=== PATIENT | male | born 1970 | race African-American/Black ===

== ENCOUNTER 2018-04-04 02:46 | Observation (INO) ==
[2018-04-04] MEDS ORDERED: Nitroglycerin 0.4 MG TAB.SUBL SL ONE (02:56)
[2018-04-04] MEDS ORDERED: Aspirin 81 MG TAB.CHEW PO ONE (02:56)
--- NOTE | 2018-04-04 03:02 | Emergency Department Note ---
Disposition Clinical Impression: Elevated blood pressure reading Chest pain Qualifiers: Chest pain type: unspecified Qualified Code(s): R07.9 - Chest pain, unspecified Disposition: Admitted As Inpatient Condition: Fair Forms: ED Satisfaction Letter Chest Pain HPI - General Chief Complaint: ED Chest Pain Stated Complaint: chest pain Time Seen by Provider: 04/04/18 02:48 Source: patient Mode of arrival: ambulatory Limitations: no limitations Vital Signs Reviewed: Yes Nursing Notes Reviewed: Yes - History of Present Illness HPI Narrative: 47-year-old male history of hypertension diabetes presents for evaluation of chest pain. Patient states symptom onset was an hour prior to arrival. Notes it to be left-sided. No radiation. States that he eats actually had intermittent symptoms over the past few days. No nausea vomiting or diaphoresis. No dyspnea. No history of heart attacks in the past. Nothing makes the pain better or worse. Pain is not worse with exertion. No pleuritic component. Patient states he took some Tums prior to arrival but did not improve the symptoms. Severity scale (1-10): 1 - Related Data Allergies Allergy/AdvReac Type Severity Reaction Status Date / Time No Known Allergies Allergy Verified 10/15/15 04:32 All systems ED: reviewed and negative except as stated. Constitutional: Denies: fever Cardiovascular: Reports: chest pain Respiratory: Denies: cough, dyspnea Gastrointestinal: Denies: abdominal pain, nausea, vomiting Chest Pain PMH - Past Medical History Medical history: Reports: hypertension Psychiatric history: Reports: no psych history - Social History Smoking Status: Never smoker Alcohol use: Reports: occasionally Drug use: Reports: none Physical Exam - General Limitations: no limitations General appearance: alert, in no apparent distress, obese - Head Head exam: atraumatic, normocephalic, normal inspection - Eye Eye exam: Present: normal appearance, PERRL, EOMI - ENT ENT exam: normal exam, normal oropharynx, mucous membranes moist - Neck Neck exam: Present: normal inspection - Chest Chest inspection: Present: normal inspection, symmetric chest wall rise - Respiratory Respiratory exam: Present: normal lung sounds bilaterally. Absent: respiratory distress - Cardiovascular Cardiovascular exam: Present: regular rate, normal rhythm. Absent: systolic murmur - Abdominal Exam Abdominal exam: Present: soft, Non-Tender - Extremities Exam Extremities exam: Present: normal inspection. Absent: pedal edema - Back Exam Back exam: Present: normal inspection - Neurological Exam Neurological exam: Present: alert, oriented X3 - Skin Skin exam: Present: warm, dry, intact, normal color Course Course Narrative: Patient's resting currently. No acute distress. Patient will get cardiopulmonary evaluation with EKG, chest x-ray troponin. Disposition pending. - Reevaluation(s) Reevaluation #1: Patient's chest pain improved after 1 nitroglycerin. Time: 03:42 Vital Signs Temperature 97.9 F 04/04/18 02:49 Pulse Rate 70 04/04/18 02:49 Respiratory Rate 16 04/04/18 02:49 Blood Pressure 164/105 04/04/18 02:49 O2 Sat by Pulse Oximetry 98 04/04/18 02:49 Temperature 97.9 F 04/04/18 02:49 Pulse Rate 67 04/04/18 03:44 Respiratory Rate 18 04/04/18 03:44 Blood Pressure 158/98 04/04/18 03:44 O2 Sat by Pulse Oximetry 95 04/04/18 03:44 Oxygen Delivery Oxygen Delivery Room Air Chest Pain - MDM Narrative Medical decision making narrative: Patient presented for concerns of chest pain. Patient heart scores of 4. Patient's pain was relieved with one nitroglycerin. During the course of the ED evaluation patient did mention that he has been off his blood pressure medications for the past couple weeks. Patient was noted be hypertensive. Patient does not have a cardiac history. Patient's history was concerning enough for ACS. Single troponin approximately 1 hour chest pain with no acute changes on EKG. Patient was given aspirin. Patient was not anticoagulated as his chest pain was resolved with negative troponin and no ischemic changes on EKG. Patient will be admitted to the hospital service for further evaluation with serial troponins and likely provocative cardiac testing. Patient's pain is not reproducible on palpation. Patient's pain is not pleuritic or consistent with PE. - Lab Data Lab results reviewed: Yes I reviewed the patient's lab results. Result diagrams: 04/04/18 02:55 04/04/18 02:55 Lab Results 04/04/18 04/04/18 04/04/18 Range/Units 02:55 02:55 02:55 WBC 8.1 (4.3-11.1) K/mcL RBC 5.39 (4.19-5.50) M/mcL Hgb 15.7 (12.9-16.9) g/dL Hct 47.1 (37.5-50.1) % MCV 87.4 (83.0-100.0) fL MCH 29.1 (28.0-33.3) pg MCHC 33.3 (31.6-35.5) g/dL RDW 12.8 (11.5-14.5) % Plt Count 149 (140-400) K/mcL MPV 12.4 (9.4-12.4) fL Immature Gran % 0.2 (0-4) % Seg Neutrophils % 62.5 % Lymphocytes % 23.6 % Monocytes % 8.0 % Eosinophils % 5.1 % Basophils % 0.6 % Neutrophils # 5.0 (1.6-8.9) K/mcL Lymphocytes # 1.9 (0.6-4.6) K/mcL Monocytes # 0.7 (0.0-1.3) K/mcL Eosinophils # 0.4 (0.0-0.6) K/mcL Basophils # 0.1 (0.0-0.2) K/mcL PT 13.0 H (9.4-12.1) Seconds INR 1.2 Sodium (136-145) mEq/L Potassium (3.5-5.1) mEq/L Chloride (98-107) mEq/L Carbon Dioxide (23-29) mEq/L BUN (6-20) mg/dL Creatinine (0.70-1.30) mg/dL Est GFR ( Amer) (> 60) Est GFR (Non-Af Amer) (> 60) BUN/Creatinine Ratio (6-26) Glucose (70-105) mg/dL Calculated Osmolality (280-300) Calcium (8.6-10.3) mg/dL Troponin I (< 0.04) ng/mL B-Natriuretic Peptide 23 (Less than 100) pg/mL 04/04/18 Range/Units 02:55 WBC (4.3-11.1) K/mcL RBC (4.19-5.50) M/mcL Hgb (12.9-16.9) g/dL Hct (37.5-50.1) % MCV (83.0-100.0) fL MCH (28.0-33.3) pg MCHC (31.6-35.5) g/dL RDW (11.5-14.5) % Plt Count (140-400) K/mcL MPV (9.4-12.4) fL Immature Gran % (0-4) % Seg Neutrophils % % Lymphocytes % % Monocytes % % Eosinophils % % Basophils % % Neutrophils # (1.6-8.9) K/mcL Lymphocytes # (0.6-4.6) K/mcL Monocytes # (0.0-1.3) K/mcL Eosinophils # (0.0-0.6) K/mcL Basophils # (0.0-0.2) K/mcL PT (9.4-12.1) Seconds INR Sodium 139 (136-145) mEq/L Potassium 3.7 (3.5-5.1) mEq/L Chloride 105 (98-107) mEq/L Carbon Dioxide 27 (23-29) mEq/L BUN 9 (6-20) mg/dL Creatinine 0.79 (0.70-1.30) mg/dL Est GFR ( Amer) > 60 (> 60) Est GFR (Non-Af Amer) > 60 (> 60) BUN/Creatinine Ratio 11 (6-26) Glucose 166 H (70-105) mg/dL Calculated Osmolality 290 (280-300) Calcium 8.9 (8.6-10.3) mg/dL Troponin I < 0.03 (< 0.04) ng/mL B-Natriuretic Peptide (Less than 100) pg/mL - Radiology Data Radiology results reviewed: Yes I reviewed the patient's radiology results. Chest X-Ray 04/04/18 02:56 IMPRESSION: No acute disease. D/ / Aureliano Toney MD / Aureliano Toney MD Interpreting Provider: Aureliano Toney MD - EKG Data EKG attestation: Yes I reviewed and interpreted this EKG. EKG shows normal: sinus rhythm Rate: normal Rhythm: NSR Interpretation: no acute changes, nonspecific ST-T wave changes Heart Score - Score History: Moderately Suspicious EKG: Non Specific repolarisation Disturbance Age: 45-65 Risk Factors: 1-2 risk factors Troponin: Less than normal limit HEART Score Total: 4 S.B.A.R. - S.B.AMalou Situation: Demographics Background: Presenting Complaint, Relevant PMH, Meds, & Allergies Assessment: Vital Signs, Course and respsone to treatment, Patient/Family Expectation Recommendation: Barrier(s) to disposition, Recommendation based on pending studies, treatments, or consults S.B.A.RAwilda Report Given to: Dr. Mariana Floyd Repor Time: 04:04
[2018-04-04 03:13] LABS: Basophils # 0.1 K/mcL (0.0-0.2); Basophils % 0.6 %; Eosinophils # 0.4 K/mcL (0.0-0.6); Eosinophils % 5.1 %; Hematocrit 47.1 % (37.5-50.1); Hemoglobin 15.7 g/dL (12.9-16.9); Immature Granulocytes % 0.2 % (0-4); Lymphocytes # 1.9 K/mcL (0.6-4.6); Lymphocytes % 23.6 %; Mean Corpuscular HGB Conc 33.3 g/dL (31.6-35.5); Mean Corpuscular Hemoglobin 29.1 pg (28.0-33.3); Mean Corpuscular Volume 87.4 fL (83.0-100.0); Mean Platelet Volume 12.4 fL (9.4-12.4); Monocytes # 0.7 K/mcL (0.0-1.3); Platelet Count 149 K/mcL (140-400); Red Blood Count 5.39 M/mcL (4.19-5.50); Red Cell Distribution Width 12.8 % (11.5-14.5); Segmented Neutrophils % 62.5 %
[2018-04-04 03:22] LABS: INR 1.2
[2018-04-04 03:32] LABS: BUN/Creatinine Ratio 11 (6-26); Blood Urea Nitrogen 9 mg/dL (6-20); Calcium 8.9 mg/dL (8.6-10.3); Carbon Dioxide 27 mEq/L (23-29); Chloride 105 mEq/L (98-107); Glucose 166 mg/dL (70-105); Osmolality,Calculated 290 (280-300); Potassium 3.7 mEq/L (3.5-5.1); Sodium 139 mEq/L (136-145); eGFR For Non-African Americans > 60 (> 60)
[2018-04-04 03:33] LABS: Troponin I < 0.03 ng/mL (< 0.04)
[2018-04-04] MEDS ORDERED: Nitroglycerin 0.4 MG TAB.SUBL SL PRN (04:05)
[2018-04-04] MEDS ORDERED: Naloxone 0.4 MG/ML INJ IVP PRN (04:05)
--- NOTE | 2018-04-04 04:19 | Emergency Department Note ---
Disposition Clinical Impression: Elevated blood pressure reading Chest pain Qualifiers: Chest pain type: unspecified Qualified Code(s): R07.9 - Chest pain, unspecified Disposition: Admitted As Inpatient Condition: Fair Referrals: Alejandrina Marin CNP [Primary Care Provider] - Forms: ED Satisfaction Letter General Adult HPI - General Chief complaint: ED Chest Pain Stated complaint: chest pain Time Seen by Provider: 04/04/18 02:48 Source: patient Mode of arrival: ambulatory Limitations: no limitations Nursing Notes Reviewed: Yes Vital Signs Reviewed: Yes - History of Present Illness Pain Scale: 1 - Related Data Allergies Allergy/AdvReac Type Severity Reaction Status Date / Time No Known Allergies Allergy Verified 10/15/15 04:32 Constitutional: Denies: fever Cardiovascular: Reports: chest pain Respiratory: Denies: cough, dyspnea Gastrointestinal: Denies: abdominal pain, nausea, vomiting Past Medical History - Past Medical History Medical history: Reports: hypertension Psychiatric history: Reports: no psych history - Social History Smoking Status: Never smoker Smokeless Tobacco Status: No Alcohol use: Reports: occasionally Drug use: Reports: none Physical Exam - General Limitations: no limitations General appearance: alert, in no apparent distress, obese Course Vital Signs Temperature 97.9 F 04/04/18 02:49 Pulse Rate 70 04/04/18 02:49 Respiratory Rate 16 04/04/18 02:49 Blood Pressure 164/105 04/04/18 02:49 O2 Sat by Pulse Oximetry 98 04/04/18 02:49 Temperature 97.9 F 04/04/18 02:49 Pulse Rate 67 04/04/18 03:44 Respiratory Rate 18 04/04/18 03:44 Blood Pressure 158/98 04/04/18 03:44 O2 Sat by Pulse Oximetry 95 04/04/18 03:44 Oxygen Delivery Oxygen Delivery Room Air Medical Decision Making - Lab Data Lab results reviewed: Yes I reviewed the patient's lab results. Result diagrams: 04/04/18 02:55 04/04/18 02:55 Lab Results 04/04/18 04/04/18 04/04/18 Range/Units 02:55 02:55 02:55 WBC 8.1 (4.3-11.1) K/mcL RBC 5.39 (4.19-5.50) M/mcL Hgb 15.7 (12.9-16.9) g/dL Hct 47.1 (37.5-50.1) % MCV 87.4 (83.0-100.0) fL MCH 29.1 (28.0-33.3) pg MCHC 33.3 (31.6-35.5) g/dL RDW 12.8 (11.5-14.5) % Plt Count 149 (140-400) K/mcL MPV 12.4 (9.4-12.4) fL Immature Gran % 0.2 (0-4) % Seg Neutrophils % 62.5 % Lymphocytes % 23.6 % Monocytes % 8.0 % Eosinophils % 5.1 % Basophils % 0.6 % Neutrophils # 5.0 (1.6-8.9) K/mcL Lymphocytes # 1.9 (0.6-4.6) K/mcL Monocytes # 0.7 (0.0-1.3) K/mcL Eosinophils # 0.4 (0.0-0.6) K/mcL Basophils # 0.1 (0.0-0.2) K/mcL PT 13.0 H (9.4-12.1) Seconds INR 1.2 Sodium (136-145) mEq/L Potassium (3.5-5.1) mEq/L Chloride (98-107) mEq/L Carbon Dioxide (23-29) mEq/L BUN (6-20) mg/dL Creatinine (0.70-1.30) mg/dL Est GFR ( Amer) (> 60) Est GFR (Non-Af Amer) (> 60) BUN/Creatinine Ratio (6-26) Glucose (70-105) mg/dL Calculated Osmolality (280-300) Calcium (8.6-10.3) mg/dL Troponin I (< 0.04) ng/mL B-Natriuretic Peptide 23 (Less than 100) pg/mL 04/04/18 Range/Units 02:55 WBC (4.3-11.1) K/mcL RBC (4.19-5.50) M/mcL Hgb (12.9-16.9) g/dL Hct (37.5-50.1) % MCV (83.0-100.0) fL MCH (28.0-33.3) pg MCHC (31.6-35.5) g/dL RDW (11.5-14.5) % Plt Count (140-400) K/mcL MPV (9.4-12.4) fL Immature Gran % (0-4) % Seg Neutrophils % % Lymphocytes % % Monocytes % % Eosinophils % % Basophils % % Neutrophils # (1.6-8.9) K/mcL Lymphocytes # (0.6-4.6) K/mcL Monocytes # (0.0-1.3) K/mcL Eosinophils # (0.0-0.6) K/mcL Basophils # (0.0-0.2) K/mcL PT (9.4-12.1) Seconds INR Sodium 139 (136-145) mEq/L Potassium 3.7 (3.5-5.1) mEq/L Chloride 105 (98-107) mEq/L Carbon Dioxide 27 (23-29) mEq/L BUN 9 (6-20) mg/dL Creatinine 0.79 (0.70-1.30) mg/dL Est GFR ( Amer) > 60 (> 60) Est GFR (Non-Af Amer) > 60 (> 60) BUN/Creatinine Ratio 11 (6-26) Glucose 166 H (70-105) mg/dL Calculated Osmolality 290 (280-300) Calcium 8.9 (8.6-10.3) mg/dL Troponin I < 0.03 (< 0.04) ng/mL B-Natriuretic Peptide (Less than 100) pg/mL - Radiology Data Radiology results reviewed: Yes I reviewed the patient's radiology results. Chest X-Ray 04/04/18 02:56 IMPRESSION: No acute disease. D/ / Aureliano Toney MD / Aureliano Toney MD Interpreting Provider: Aureliano Toney MD - EKG Data EKG #1 EKG attestation: Yes I reviewed and interpreted this EKG. EKG results narrative: EKG shows a normal sinus rhythm with ventricular rate of 68. No acute ST segment elevation or depression. No arrhythmia or ectopy. No significant change from prior EKG dated 09/21/2014. Attestation Statement - Attestation Attestation: I, Rick Zamorano MD, personally evaluated this patient and discussed their management with the resident physician. I reviewed the resident's note and agree with the documented findings, medical decision making, and plan of care. 47-year-old male presents to the emergency department with a complaint of some dull left-sided chest pain which started about one hour prior to arrival. No radiation the pain. No shortness of breath. No diaphoresis. No nausea or vomiting. He did take some antacids which did not seem to help. Patient states he has been having this similar pain intermittently for a while but not as bad as tonight. He does have a history of hypertension but has not been taking his medications for the past week or 2. He is borderline diabetic. On examination patient is a well-developed obese male in no acute distress. He is alert and oriented 3. There is no diaphoresis. Chest is nontender to palpation. Breath sounds are clear and equal bilaterally. Heart regular rate and rhythm. Abdomen is soft and nontender with normal bowel sounds. EKG shows no acute ischemic changes. Chest x-ray negative. Labs reviewed. Troponin normal. The hospitalist, Dr. Peña, was consulted and accepted admission of the patient.
--- NOTE | 2018-04-04 06:13 | Internal Med History&Physical ---
<Anya Marquez - Last Filed: 04/04/18 06:30> Date of Encounter: 04/04/18 Time of Encounter: 05:59 Internal Medicine - H&P: HPI Chief complaint: chest pain Admitted From: Home Plans for Post Hospital Care: Home History of present illness: Mr. Naik is a 47 year old male history of HTN and pre-DM presented to ED for chest pain. He describes achy pain onset 4-5 days ago that was intermittent until today when it became worse and constant. Michael shortness of breath, diaphoresis, or radiation. He says this pain happened a few years ago - he had normal echo and stress test. He has had a headache this week located at top of his head but has resolved. In ED, his BP as 162/98. Troponins negative and no acute changes on EKG. He received loading dose of aspirin and one dose of nitroglycerin - pain has resolved. Family history of mother with pacemaker. Non-smoker. EtOH about 4 beers per week no more than 2 at one time. Denies any illicit substances. He is prescribed 3 different blood pressure medication - he can't remember the name of any. He stopped taking his medications a few weeks ago because they made him tired. He admits to occasional pedal edema when he falls asleep in chair. Past Med Surg Social Fam HX - Past Medical History Medical history: hypertension Additional medical history: obesity. boderline DM Psychiatric history: no psych history - Past Surgical History Additional surgical history: vasectomy. right knee surgery - Social History Smoking Status: Never smoker Smokeless Tobacco Status: No Alcohol use: occasionally Drug use: none - Family History Mother Living Status: Still Living Hx Family Cardiac Disorders: Yes (DEFIBRILATOR/PACER) Hx Family Endocrine Disorder: Yes (DM) Internal Medicine - H&P: Meds No Known Home Drugs 04/04/18 [History] 3 Allergy/AdvReac Type Severity Reaction Status Date / Time No Known Allergies Allergy Verified 10/15/15 04:32 All Systems PM: A 10-system review of systems was performed and is negative for pertinent findings except as documented above in the HPI. - Constitutional Constitutional: fatigue, no fever(s), no falls - EENT Eyes: no blurry vision, no change in vision - Cardiovascular Cardiovascular ROS IM: chest pain, no diaphoresis, no dyspnea, no lightheadedness, no palpitations, no syncope - Respiratory Respiratory: no cough, no wheezing - Gastrointestinal Gastrointestinal: constipation, no cramping, no diarrhea, no nausea, no vomiting - Genitourinary Genitourinary ROS male: no dysuria, no urinary frequency, no urinary incontinence - Musculoskeletal Musculoskeletal ROS IM: arthralgias, muscle cramps - Neurological Neurological ROS: headache(s), no confusion, no dizziness - Psychiatric Psychiatric: no anxiety, no depression, no hopelessness - Constitutional Vitals: Temp Pulse Resp BP Pulse Ox 98.2 F 62 19 166/102 96 04/04/18 05:46 04/04/18 05:46 04/04/18 05:46 04/04/18 05:46 04/04/18 05:46 General appearance: Present: cooperative, A&O X 3, morbidly obese, no acute distress, answers questions appropriately Exam: he is sitting comfortably in bed - Head Head exam: Present: atraumatic, normocephalic - Respiratory Respiratory exam: Present: CTAB. Absent: rales, respiratory distress, wheezes - Cardiovascular Cardiovascular exam: Present: RRR. Absent: gallop, rubs - GI/Abdominal GI/Abdominal exam: Present: normal bowel sounds. Absent: guarding, mass, tenderness - Extremities Exam Extremities exam: Present: full ROM, radial pulses palpable and symmetrical. Absent: pedal edema - Psychiatric Psychiatric exam: Present: normal affect, normal mood. Absent: anxious Internal Med - H&P Results - Labs CBC & Chem 7: 04/04/18 02:55 04/04/18 02:55 - Assessment and plan (1) Chest pain Current Visit: Yes Status: Acute Assessment and plan: No typical ACS symptoms with HEART score of 3 - no acute changes to EKG - negative troponin- repeat q 6 hr - NPO - nitroglycerin PRN - echo - stress test - consider cardiology consult Qualifiers: Chest pain type: unspecified Qualified Code(s): R07.9 - Chest pain, unspecified (2) Hypertension Current Visit: Yes Status: Acute Assessment and plan: Uncontrolled due to non-adherence to unknown home mediations - start HTZ 25 and amlodipine 5 - continue metoprolol for now but consider discontinue at discharge due to side affects of fatigue Qualifiers: Hypertension type: essential hypertension Qualified Code(s): I10 - Essential (primary) hypertension (3) Pre-diabetes Current Visit: Yes Status: Acute Assessment and plan: Random glucose 166 with last A1C 5.9 on diet control - consider diabetic diet after procedures (4) DVT prophylaxis Current Visit: Yes Status: Acute Assessment and plan: heparin SQ - Time Spent With Patient Total time spent is greater than 50% in coordination of care (as documented) at patient's floor/unit and/or counseling patient: 25 - 35 minutes <Malissa Baird - Last Filed: 04/04/18 06:37> Date of Encounter: 04/04/18 Internal Medicine - H&P: HPI History of present illness: Mr. Naik is a 47 year old male All Systems PM: A 10-system review of systems was performed and is negative for pertinent findings except as documented above in the HPI. - Constitutional Vitals: Temp Pulse Resp BP Pulse Ox 98.2 F 62 19 166/102 96 04/04/18 05:46 04/04/18 05:46 04/04/18 05:46 04/04/18 05:46 04/04/18 05:46 Internal Med - H&P Results - Labs CBC & Chem 7: 04/04/18 02:55 04/04/18 02:55 - Time Spent With Patient Total time spent is greater than 50% in coordination of care (as documented) at patient's floor/unit and/or counseling patient: - Attending Attestation Mr Naik is a 47 year old man with hypertension and pre-diabetes who presents with left-sided chest pain that has been recurring over the past few days that is not related to exertion and is without associated dyspnea or diaphoresis. He remains physically active and denies smoking and illicit drug use. On arrival he was clinically and hemodynamically stable. EKG showed a normal sinus rhythm and vital signs within normal limits. Physical exam remarkable for a well- developed man in no acute distress. Cardiac and pulmonary auscultation without abnormal finings. No signs of peripheral edema. Unable to reproduce chest pain. He is low to moderate risk of ACS. Will observe him, trend troponins, monitor on telemetry and consideration to be given for cardiac stress testing. Start medications for BP control. Assess lipid status and A1C. DVT prophylaxis with heparin subq. Follow up as outpatient.
[2018-04-04] MEDS ORDERED: Regadenoson 0.4 MG/5 ML SYRINGE IVP ONE (06:16)
[2018-04-04] MEDS ORDERED: Acetaminophen 325 MG TABLET PO PRN (06:27)
[2018-04-04 09:06] LABS: Chol/HDL Ratio 4.3 (0-4.9)
[2018-04-04] MEDS: *HR* Heparin 5,000 UNIT/ML VIAL SQ SCH ×3 (10:17→21:55)
[2018-04-04 11:17] LABS: Estimated Average Glucose 128 mg/dl; Hemoglobin A1C 6.1 %
[2018-04-04] MEDS: amLODIPine 5 MG TABLET PO SCH (12:17)
[2018-04-04] MEDS: hydroCHLOROthiazide 25 MG TABLET PO SCH (12:17)
[2018-04-04] MEDS: Aspirin 81 MG TAB.CHEW PO SCH (12:17)
--- NOTE | 2018-04-04 17:29 | Internal Med Progress Note ---
Hospitalist Progress Note - Encounter Date of Encounter: 04/04/18 Time of Encounter: 17:22 - Subjective Interval History: No acute changes - Exam Vitals: Temp Pulse Resp BP Pulse Ox 97.9 F 68 16 140/89 94 04/04/18 15:01 04/04/18 15:01 04/04/18 15:01 04/04/18 15:01 04/04/18 15:01 Exam: PHYSICAL EXAMINATION: GENERAL: The patient is a well-developed, well-nourished male in no apparent distress. He is alert and oriented x3. NECK: Supple. No carotid bruits. No lymphadenopathy or thyromegaly. LUNGS: Clear to auscultation. HEART: Regular rate and rhythm, S1, S2 without murmur. ABDOMEN: Soft, nontender, and nondistended. Positive bowel sounds. No hepatosplenomegaly was noted. EXTREMITIES: Without any cyanosis, clubbing, rash, lesions or edema. - Assessment and Plan (1) Chest pain Current Visit: Yes Status: Acute Assessment and Plan: Presented with chest discomfort with atypical presentation Denies any shortness of breath, diaphoresis, fatigue, dizziness, palpitations Reports that this occurred after prolonged use of a weed thierry for approximately 2 hours Serial troponins negative 3, no acute changes EKG To undergo today's stress test, first half completed today; secondary to be completed tomorrow Echocardiogram pending Continue court recording monitor Chest pain has subsided and has not returned throughout this admission -Presentation I have low suspicion that this is acute coronary syndrome however we will continue workup Continue aspirin, Norvasc, HCTZ, beta milagros and nitroglycerin for chest pain Patient does not have hyperlipidemia, we will stop the Lipitor at this time (2) Hypertension Current Visit: Yes Status: Acute Assessment and Plan: Prior history, hypertensive episodes afternoon. BP 140/89 at this time. Continue to closely monitor. Continue Norvasc, beta milagros and HCTZ. (3) Pre-diabetes Current Visit: Yes Status: Acute Assessment and Plan: History of prediabetes, hemoglobin A1c 6.1 Blood glucose stable throughout stay, continue to monitor DVT Prophylaxis: SC heparin - Time Spent with Patient Total time spent is greater than 50% in coordination of care (as documented) at patient's floor/unit and/or counseling patient: less than 15 minutes Plan of Care Discussed with: patient Internal Medicine: Result - Labs CBC & Chem 7: 04/04/18 02:55 04/04/18 02:55 Labs: Cardiac Enzymes 04/04/18 04/04/18 Range/Units 08:23 15:03 Troponin I < 0.03 < 0.03 (< 0.04) ng/mL - ABG Interpretation ABG results: PT/INR, D-dimer PT 13.0 Seconds (9.4-12.1) H 04/04/18 02:55 Consult Discharge Plan - Plan Referrals: Alejandrina Marin, [facility] [Primary Care Provider] - (1) Chest pain Qualifiers: Chest pain type: unspecified Qualified Code(s): R07.9 - Chest pain, unspecified (2) Hypertension Qualifiers: Hypertension type: essential hypertension Qualified Code(s): I10 - Essential (primary) hypertension
[2018-04-04] MEDS ORDERED: Perflutren Lipid Microsphere 1.3 ML in 0.9 % Sodium Chloride 8.7 ML IVP ONE (21:00)
[2018-04-04] MEDS ORDERED: Perflutren Lipid Microsphere 2 ML VIAL ONE (21:15)
[2018-04-05] MEDS: *HR* Heparin 5,000 UNIT/ML VIAL SQ SCH (07:30)
[2018-04-05] MEDS: hydroCHLOROthiazide 25 MG TABLET PO SCH (09:50)
[2018-04-05] MEDS: Aspirin 81 MG TAB.CHEW PO SCH (09:50)
[2018-04-05] MEDS: amLODIPine 5 MG TABLET PO SCH (09:50)
[2018-04-05 11:38] VITALS: BP 133/87
--- NOTE | 2018-04-05 14:38 | Discharge Summary ---
Orders not resulted at time of discharge: Pending orders 04/04/18 05:58 NM sonu perf SPECT multi [NM] Routine Date of Encounter: 04/05/18 Time of Encounter: 14:34 - Discharge Diagnosis (1) Chest pain Priority: Primary Status: Acute Assessment and Plan: Presented with chest discomfort with atypical presentation Denies any shortness of breath, diaphoresis, fatigue, dizziness, palpitations Reports that this occurred after prolonged use of a weed thierry for approximately 2 hours Serial troponins negative 3, no acute changes EKG 2-day stress perfusion study negative for ischemia or infarct No return of CP during this admission Echocardiogram pending Continue cardiac monitorn Continue aspirin, Norvasc, HCTZ, beta milagros at d/c Qualifiers: Chest pain type: unspecified Qualified Code(s): R07.9 - Chest pain, unspecified (2) Hypertension Priority: Secondary Status: Acute Qualifiers: Hypertension type: essential hypertension Qualified Code(s): I10 - Essential (primary) hypertension (3) Pre-diabetes Priority: Secondary Status: Acute Hospital course: Mr. Naik is a 47 year old male who developed chest pain after clearing weeds on his property. No prior history of CT, minimal risk factors. EKG without ST- T wave changes concerning for ischemia, serial troponins negative 3, echocardiogram EF 65%, normal LV size and function, moderate LV hypertrophy, mild LV diastolic dysfunction, mild pulmonic regurgitation, no pulmonary hypertension noted. Today's stress negative for ischemia. Uneventful hospital course the return of chest pain throughout the stay. He was found to have hypertension and prescribed hydrochlorothiazide, beta milagros and norvasc. BP improved throughout stay. Uneventful hospital course. Basic d/c f/u. Discuss bp, bp meds and lifestyle modifications. Discharge discussed with: patient, nurse - Time Spent with Patient Total time spent providing and/or coordinating discharge services: Less than 30 minutes - Discharge Medications Prescriptions: amLODIPine [Norvasc] 5 mg PO DAILY 30 Days #30 tablet hydroCHLOROthiazide [Hydrochlorothiazide] 25 mg PO DAILY 30 Days #30 tablet Metoprolol [Lopressor] 12.5 mg PO BID 30 Days #15 tablet Home Medications: Aspirin 81 mg PO DAILY tab.chew 04/05/18 [Rx] Metoprolol [Lopressor] 12.5 mg PO BID 30 Days #15 tablet 04/05/18 [Rx] amLODIPine [Norvasc] 5 mg PO DAILY 30 Days #30 tablet 04/05/18 [Rx] hydroCHLOROthiazide [Hydrochlorothiazide] 25 mg PO DAILY 30 Days #30 tablet 12/16 [Rx] Allergies/Adverse Reactions: 3 Allergy/AdvReac Type Severity Reaction Status Date / Time No Known Allergies Allergy Verified 10/15/15 04:32 Date of admission: 04/04/18 04:26 Primary care physician: Alejandrina Marin CNP Discharging clinician: Jeffy Hawley Anticipated date of discharge: 04/05/18 - Constitutional Vitals: Temp Pulse Resp BP Pulse Ox 98.2 F 66 20 133/87 94 04/05/18 11:36 04/05/18 11:36 04/05/18 11:36 04/05/18 11:36 04/05/18 11:36 General appearance: Present: cooperative, A&O X 3, morbidly obese, no acute distress, answers questions appropriately Exam: PHYSICAL EXAMINATION: GENERAL: The patient is a well-developed, well-nourished male in no apparent distress. He is alert and oriented x3. NECK: Supple. No carotid bruits. No lymphadenopathy or thyromegaly. LUNGS: Clear to auscultation. HEART: Regular rate and rhythm, S1, S2 without murmurs, rubs or gallops. ABDOMEN: Soft, nontender, and nondistended. Positive bowel sounds. No hepatosplenomegaly was noted. EXTREMITIES: Without any cyanosis, clubbing, rash, lesions or edema. - Patient Status Disposition: Home, Self-Care Condition: Fair Functional capacity at discharge: independent ambulation Overall status at discharge: patient is back to baseline - Discharge Instructions Follow Up With: Alejandrina Marin CNP [Primary Care Provider] - - Diet and Activity Activity: increase activity as tolerated, resume usual activities as tolerated Diet: advance to your usual diet, diabetic diet, low fat, low cholesterol
--- NOTE | 2018-04-08 11:40 | Electrocardiograph Report ---
[address] [address] Test Date: 2018-04-04 Pat Name: Alejandro Naik Department: EXAM21 Room: 3B64 Gender: M Board Of Directors: : 1970 Requested By: Souleymane Roldan Order Number: [id number] Reading MD: Jose Alberto Bradford Measurements Intervals [place] Rate: 68 P: 80 [place]: 152 QRS: 92 QRSD: 104 T: 52 QT: 438 QTc: 466 Interpretive Statements Sinus rhythm Borderline right axis deviation Electronically Signed On 04-08-2018 11:39:28 EDT by Jose Alberto Bradford
== END 2018-04-05 15:42 | disposition home or self-care (01) ==
LOC: 3BNU 02:46 → EMEROOARM 02:46 → 3BNU 04:37
PROVIDERS: ADMIT Internal Medicine; ATTEND Internal Medicine

== ENCOUNTER 2021-11-03 21:03 | Observation (INO) ==
[2021-11-03 23:16] LABS: Basophils % 0.4 %; Eosinophils % 0.2 %; Hematocrit 47.1 % (37.5-50.1); Hemoglobin 15.2 g/dL (12.9-16.9); Immature Granulocytes % 0.2 % (0-4); Lymphocytes # 1.2 K/mcL (0.6-4.6); Lymphocytes % 10.6 %; Mean Corpuscular HGB Conc 32.3 g/dL (31.6-35.5); Mean Corpuscular Hemoglobin 28.6 pg (28.0-33.3); Mean Corpuscular Volume 88.7 fL (83.0-100.0); Monocytes # 0.6 K/mcL (0.0-1.3); Monocytes % 5.5 %; Platelet Count 171 K/mcL (140-400); Red Blood Count 5.31 M/mcL (4.19-5.50); Red Cell Distribution Width 12.7 % (11.5-14.5); Segmented Neutrophils % 83.1 %; White Blood Count 10.8 K/mcL (4.3-11.1)
[2021-11-03 23:35] LABS: Alanine Aminotransferase 23 Units/L (7-52); Albumin 4.5 g/dL (3.5-5.7); Albumin/Globulin Ratio 1.8 (1.1-2.2); Alkaline Phosphatase 55 Units/L (34-104); Aspartate Amino Transferase 16 Units/L (13-39); BUN/Creatinine Ratio 12 (6-26); Bilirubin,Total 0.5 mg/dL (0.3-1.0); Blood Urea Nitrogen 10 mg/dL (6-20); Calcium 9.6 mg/dL (8.6-10.3); Carbon Dioxide 28 mEq/L (23-29); Chloride 102 mEq/L (98-107); Globulin 2.5 g/dL (2.4-3.5); Glucose 171 mg/dL (70-105); Osmolality,Calculated 289 (280-300); Sodium 138 mEq/L (136-145); eGFR For African Americans > 60 (> 60); eGFR For Non-African Americans > 60 (> 60)
[2021-11-04] MEDS ORDERED: Isovue-370 500 ML BOTTLE IVP ONE (01:28)
[2021-11-04 02:17] LABS: INR 1.2; Prothrombin Time 13.3 Seconds (9.4-12.1)
[2021-11-04 02:19] LABS: Activated Partial Thrombo Time 33.6 Seconds (26.0-36.0)
[2021-11-04] MEDS ORDERED: Ondansetron 4 MG/2 ML VIAL IVP PRN ×2 (03:01→06:00)
[2021-11-04] MEDS ORDERED: Naloxone 0.4 MG/ML INJ IVP PRN (04:42)
[2021-11-04] MEDS ORDERED: Melatonin 3 MG TABLET PO PRN (04:42)
[2021-11-04] MEDS ORDERED: *HR* Dextrose 50 % in Water (Syg) 50 ML SYRINGE IVP PRN (04:53)
[2021-11-04] MEDS ORDERED: Dextrose 4 GM Chewable Tablets PO PRN ×2 (04:53)
[2021-11-04] MEDS ORDERED: D5% in Water 1,000 ML IVC PRN (04:53)
[2021-11-04] MEDS ORDERED: Metoclopramide 10 MG/2 ML VIAL IVP ONE (06:03)
[2021-11-04] MEDS ORDERED: Ketorolac 30 MG/ML VIAL IVP ONE (06:03)
[2021-11-04 06:40] VITALS: O2SAT 93
[2021-11-04] MEDS: Insulin LISPRO 300 UNITS/3 ML VIAL SUBQ SCH ×2 (07:58→12:01)
[2021-11-04 09:43] LABS: Amphetamine Screen,Urine Negative ng/mL (Cutoff=1000); Barbiturate Screen,Urine Negative ng/mL (Cutoff=200); Benzodiazepines Screen,Urine Negative ng/mL (Cutoff=200); Cannabinoid Screen,Urine Negative ng/mL (Cutoff = 50); Cocaine Screen,Urine Negative ng/mL (Cutoff= 300); Opiate Screen,Urine Negative ng/mL (Cutoff=300); Phencyclidine Screen,Urine Negative ng/mL (Cutoff=25)
[2021-11-04] MEDS ORDERED: *HR* LORazepam 2 MG/ML VIAL IVP ONE (09:45)
[2021-11-04 14:39] VITALS: BP 131/72; PULSE 81; TEMP 98.4
[2021-11-04] MEDS ORDERED: Insulin LISPRO 300 UNITS/3 ML VIAL SUBQ SCH (21:00)
== END 2021-11-04 17:08 | disposition home or self-care (01) ==
LOC: 3BNU 21:03 → EMEROOARM 21:03 → 3BNU 11-04 05:20
PROVIDERS: ADMIT Student in an Organized Health Care Education/Training Program; ATTEND Student in an Organized Health Care Education/Training Program